=== PATIENT | male | born 1985 | race Asian ===

== ENCOUNTER 2021-03-26 18:59 | Emergency (ER) | payer BC ==
[~2021-03-26] VITALS: Ht 30.5 cm; Wt 0.5 kg
[2021-03-26 19:26] LABS: Basophils # (auto) 0 10 ^3/uL (0-0.2); Eosinophils # (auto) 0.1 10 ^3/uL (0-0.8); Hemoglobin 11.5 g/dL (13.5-17.5); Lymphocytes # (auto) 0.8 10 ^3/uL (0.4-5.4); Neutrophils # (auto) 3.4 10 ^3/uL (1.6-8.6)
[2021-03-26 19:28] LABS: Basophils % (auto) 0.5 % (0.0-2.0); Eosinophils % (auto) 1.9 % (0.0-7.0); Hematocrit 32.7 % (41.0-53.0); Lymphocytes % (auto) 16.7 % (10.0-50.0); Mean Corpuscular Hemoglobin 34.6 pg (28.0-32.0); Mean Corpuscular Hgb Conc. 35.3 g/dL (32.0-36.0); Mean Corpuscular Volume 98.2 fL (80.0-100.0); Monocytes # (auto) 0.4 10 ^3/uL (0-1.3); Monocytes % (auto) 8.6 % (0.0-12.0); Neutrophils % (auto) 72.3 % (37.0-80.0); Nucleated Red Blood Cells % 0.1 %; Red Blood Cells 3.33 10^6/uL (4.5-5.90); Red Cell Distribution Width 18.7 % (11.8-14.3); White Blood Cell 4.6 10^3/uL (4.4-10.8)
[2021-03-26 19:42] LABS: INR 0.95 (0.9-1.15)
[2021-03-26 19:44] LABS: Albumin 1.6 g/dL (3.4-5.0); Anion Gap 8 (5-15); Blood Urea Nitrogen 22 mg/dL (7-18); Calcium 7.1 mg/dL (8.5-10.1); Carbon Dioxide 20 mmol/L (21-32); Chloride 111 mmol/L (98-107); Glucose 119 mg/dL (74-106); Magnesium 1.9 mg/dL (1.6-2.6); Potassium 4.3 mmol/L (3.5-5.1); Sodium 139 mmol/L (136-145)
[2021-03-26 19:50] LABS: Alanine Aminotransferase 25 U/L (16-61); Alkaline Phosphatase 49 U/L (45-117); Aspartate Aminotransferase 30 U/L (15-37); BUN/Creatinine Ratio 22.4; Bilirubin, Total 0.3 mg/dL (0.2-1.0); GFR African American 111 mL/min; GFR Non-African American 92 mL/min; Total Protein 4.5 g/dL (6.4-8.2)
[2021-03-26 19:57] LABS: Urine WBC None Seen /hpf (0 - 3)
[2021-03-26 20:25] LABS: Urine Bacteria NONE SEEN /hpf (None Seen); Urine Blood TRACE /uL (Negative); Urine Specific Gravity 1.016 (1.001-1.035)
[2021-03-26 20:29] LABS: Alcohol, Urine < 3.0 mg/dL (0-10); Amphetamine Screen, Urine NEGATIVE (NEGATIVE); Barbiturate Scree,Urine NEGATIVE (NEGATIVE); Benzodiazephine Screen, Urine NEGATIVE (NEGATIVE); Cannabinoid Screen, Urine NEGATIVE (NEGATIVE); Cocaine Screen, Urine NEGATIVE (NEGATIVE); Opiate Scree,Urine NEGATIVE (NEGATIVE); Phencyclidine Screen, Urine NEGATIVE (NEGATIVE)
[2021-03-26] MEDS ORDERED: SODIUM CHLORIDE 0.9% 1,000 ML IV ONE (20:45)
[2021-03-26] MEDS ORDERED: BACITRACIN TOP OINT 1 UD PKG TOP ONE (20:45)
[2021-03-26] MEDS ORDERED: [UNRECOGNIZED DRUG - OTHER] IV ONE (21:45)
[2021-03-26] MEDS ORDERED: CALCIUM GLUC IV ONE (21:45)
[2021-03-26] MEDS ORDERED: CALCIUM GLUC 1,000mg/50ml-NS 50 ML IV ONE ×2 (22:30→22:45)
[2021-03-27 06:30] VITALS: BP 96/67
== END 2021-03-27 06:54 | disposition home or self-care (01) ==
LOC: ER 19:02
DX: T22.152A Burn of first degree of left shoulder, initial encounter (principal); E83.51 Hypocalcemia; R55 Syncope and collapse; I10 Essential (primary) hypertension; I25.10 Atherosclerotic heart disease of native coronary artery without angina pectoris; Z98.890 Other specified postprocedural states; X08.8XXA Exposure to other specified smoke, fire and flames, initial encounter; Y93.89 Activity, other specified; Y92.89 Other specified places as the place of occurrence of the external cause; Y99.8 Other external cause status
CPT/HCPCS: 36415; 70450; 71045; 80053; 80307; 81001; 83605; 83735; 83880; 84484; 85025; 85049; 85610; 85730; 86141; 87040; 93005; 96361; 96365; 96366; 99285; J0610